=== PATIENT | male | born 1955 | race Caucasian/White ===

== ENCOUNTER 2021-04-28 15:13 | Emergency (ER) | payer MEDICARE, BC ==
--- NOTE | 2021-04-28 15:15 | EDM.PDOC ---
"ED HPI GENERAL MEDICAL PROBLEM - General Chief Complaint: Abdominal Pain Stated Complaint: BY AMBULANCE Time Seen by Provider: 04/28/21 15:15 Source of Information: Reports: Patient, EMS, RN, RN Notes Reviewed History Limitations: Reports: No Limitations - History of Present Illness INITIAL COMMENTS - FREE TEXT/NARRATIVE: Pt arrives to ER by ambulance with c/o severe LLQ abdominal pain and cramping that began about an hour prior to arriving to the ER. Pt states he was sitting on a golf cart at the [place] when the pain began. On the way to the ER the pain resolved. Now in the ER pt is pain free, but still somewhat tender to palpation at the LLQ. He denies fever, chills, N/V/D/C, or any other symptoms. Pt was worried due to Hx of non-alcoholic liver disease with cirrhosis and esophageal varices. Pt states he has had upper and lower endoscopy within the last year, and had one polyp on the colon. Denies Hx of irritable bowel, I.C., diverticulitis, or any other bowel disease. Onset: Today, Sudden Duration: Resolved Prior to Arrival Location: Reports: Abdomen Quality: Reports: Other (Cramping) Severity: Severe Improves with: Reports: None Worsens with: Reports: None Associated Symptoms: Reports: No Other Symptoms - Related Data Allergies Allergy/AdvReac Type Severity Reaction Status Date / Time No Known Allergies Allergy Verified 04/28/21 15:23 Home Meds: Home Meds Acetaminophen [Tylenol] 650 mg PO Q4H PRN 04/28/21 [History] Gabapentin [Neurontin] 300 mg PO 04/28/21 [History] metFORMIN HCl [Metformin ER Gastric] 1,000 mg PO BID 04/28/21 [History] rOPINIRole [Requip] 1 mg PO BEDTIME 04/28/21 [History] traMADol [Ultram] 50 mg PO Q8H PRN 04/28/21 [History] Past Medical History Gastrointestinal History: Reports: Cirrhosis, Fatty Liver, GI Bleed (Esophageal varices) Genitourinary History: Reports: BPH Social & Family History - Family History Family Medical History: No Pertinent Family History - Living Situation & Occupation Living situation: Reports: , with Spouse ED ROS GENERAL - Review of Systems Review Of Systems: Comprehensive ROS is negative, except as noted in HPI. ED EXAM, GI/ABD - Physical Exam Exam: See Below Exam Limited By: No Limitations General Appearance: Alert, WD/WN, No Apparent Distress Eyes: Bilateral: Normal Appearance (No scleral icterus) Nose: Normal Inspection, No Blood Throat/Mouth: Normal Lips, Normal Voice, No Airway Compromise Head: Atraumatic, Normocephalic Neck: Normal Inspection Respiratory/Chest: No Respiratory Distress, Lungs Clear, Normal Breath Sounds, No Accessory Muscle Use, Chest Non-Tender Cardiovascular: Normal Peripheral Pulses, Regular Rate, Rhythm, No Edema, No Gallop, No JVD, No Murmur, No Rub GI/Abdominal Exam: Normal Bowel Sounds, Soft, No Organomegaly, No Distention, No Mass, Tender (LLQ). No: Guarding, Rigid, Rebound Back Exam: Normal Inspection Extremities: Normal Inspection Neurological: Alert, Oriented, No Motor/Sensory Deficits Psychiatric: Normal Mood Skin Exam: Warm, Dry, Intact, Normal Color, No Rash Course - Vital Signs Last Recorded V/S: Last Vital Signs Temp 97.2 F 04/28/21 15:26 Pulse 71 04/28/21 15:26 Resp 20 04/28/21 15:26 BP 132/87 04/28/21 15:26 Pulse Ox 100 04/28/21 15:26 - Orders/Labs/Meds Orders: Active Orders 24 hr Category Date Time Status Peripheral IV Care [RC] . DIRECTED Care 04/28/21 15:29 Active Sodium Chloride 0.9% [Saline Flush] Med 04/28/21 15:28 Active 10 ml FLUSH ASDIRECTED PRN Peripheral IV Insertion Adult [OM.PC] Stat Oth 04/28/21 15:28 Ordered Medication Orders Sodium Chloride (Sodium Chloride 0.9% 10 Ml Syringe) 10 ml FLUSH ASDIRECTED PRN PRN Reason: Keep Vein Open Last Admin: 04/28/21 15:40 Dose: 10 ml Documented by: MARIA T Labs: Laboratory Tests 04/28/21 04/28/21 04/28/21 Range/Units 15:40 15:40 15:40 WBC 3.2 L (5.0-10.0) 10^3/uL RBC 4.39 L (4.6-6.2) 10^6/uL Hgb 14.7 (14.0-18.0) g/dL Hct 42.9 (40.0-54.0) % MCV 97.7 (80-100) fL MCH 33.5 (27.0-34.0) pg MCHC 34.3 (33.0-35.0) g/dL Plt Count 98 L (150-450) 10^3/uL Neut % (Auto) 41.9 L (42.2-75.2) % Lymph % (Auto) 39.1 (20.5-50.1) % Bracken % (Auto) 15.9 H (2-8) % Eos % (Auto) 2.8 (1.0-3.0) % Baso % (Auto) 0.3 (0.0-1.0) % Sodium 141 (136-145) mmol/L Potassium 5.2 H (3.5-5.1) mmol/L Chloride 104 (98-107) mmol/L Carbon Dioxide 30 (21-32) mmol/L Anion Gap 12.2 (7-13) mEq/L BUN 17 (7-18) mg/dL Creatinine 1.10 (0.70-1.30) mg/dL Est Cr Clr Drug Dosing 69.41 mL/min Estimated GFR (MDRD) > 60 BUN/Creatinine Ratio 15.5 (No establ ref range) Glucose 130 H (70-99) mg/dL Lactic Acid 1.7 (0.4-2.0) mmol/L Calcium 8.9 (8.5-10.1) mg/dL Total Bilirubin 0.7 (0.2-1.0) mg/dL AST 44 H (15-37) U/L ALT 48 (16-63) U/L Alkaline Phosphatase 73 (46-116) U/L Total Protein 6.9 (6.4-8.2) g/dL Albumin 3.0 L (3.4-5.0) g/dL Globulin 3.9 Albumin/Globulin Ratio 0.77 Amylase 44 (25-115) U/L Urine Color (YELLOW) Urine Appearance (CLEAR) Urine pH (5.0-9.0) Ur Specific [place] (1.005-1.030) Urine Protein (NEGATIVE) Urine Glucose (UA) (NEGATIVE) Urine Ketones (NEGATIVE) Urine Occult Blood (NEGATIVE) Urine Nitrite (NEGATIVE) Urine Bilirubin (NEGATIVE) Urine Urobilinogen (0.2-1.0) mg/dL Ur Leukocyte Esterase (NEGATIVE) Urine RBC /HPF Urine WBC (0-5/HPF) /HPF Ur Epithelial Cells (NOT SEEN) /HPF Amorphous Sediment (NOT SEEN) /HPF Urine Bacteria (0-FEW/HPF) /HPF Urine Mucus (NOT SEEN) /LPF 04/28/21 Range/Units 16:25 WBC (5.0-10.0) 10^3/uL RBC (4.6-6.2) 10^6/uL Hgb (14.0-18.0) g/dL Hct (40.0-54.0) % MCV (80-100) fL MCH (27.0-34.0) pg MCHC (33.0-35.0) g/dL Plt Count (150-450) 10^3/uL Neut % (Auto) (42.2-75.2) % Lymph % (Auto) (20.5-50.1) % [place]ack[place] % (Auto) (2-8) % Eos % (Auto) (1.0-3.0) % Baso % (Auto) (0.0-1.0) % Sodium (136-145) mmol/L Potassium (3.5-5.1) mmol/L Chloride (98-107) mmol/L Carbon Dioxide (21-32) mmol/L Anion Gap (7-13) mEq/L BUN (7-18) mg/dL Creatinine (0.70-1.30) mg/dL Est Cr Clr Drug Dosing mL/min Estimated GFR (MDRD) BUN/Creatinine Ratio (No establ ref range) Glucose (70-99) mg/dL Lactic Acid (0.4-2.0) mmol/L Calcium (8.5-10.1) mg/dL Total Bilirubin (0.2-1.0) mg/dL AST (15-37) U/L ALT (16-63) U/L Alkaline Phosphatase (46-116) U/L Total Protein (6.4-8.2) g/dL Albumin (3.4-5.0) g/dL Globulin Albumin/Globulin Ratio Amylase (25-115) U/L Urine Color Yellow (YELLOW) Urine Appearance Slightly cloudy (CLEAR) Urine pH 7.0 (5.0-9.0) Ur Specific [place] 1.025 (1.005-1.030) Urine Protein Negative (NEGATIVE) Urine Glucose (UA) Negative (NEGATIVE) Urine Ketones Negative (NEGATIVE) Urine Occult Blood Moderate H (NEGATIVE) Urine Nitrite Negative (NEGATIVE) Urine Bilirubin Negative (NEGATIVE) Urine Urobilinogen 0.2 (0.2-1.0) mg/dL Ur Leukocyte Esterase Negative (NEGATIVE) Urine RBC 40-50 H /HPF Urine WBC 0-5 (0-5/HPF) /HPF Ur Epithelial Cells Few (NOT SEEN) /HPF Amorphous Sediment Rare (NOT SEEN) /HPF Urine Bacteria Rare (0-FEW/HPF) /HPF Urine Mucus Few H (NOT SEEN) /LPF Meds: Medications Generic Name Dose Route Start Last Admin Trade Name Freq PRN Reason Stop Dose Admin Sodium Chloride 10 ml 04/28/21 15:28 04/28/21 15:40 Sodium Chloride 0.9% 10 Ml Syringe FLUSH 10 ml ASDIRECTED PRN Administration Keep Vein Open - Radiology Interpretation Free Text/Narrative:: [facility] Final Radiology Report Call: [phone] assistance Online chat: [email or web address] Name: WHIT CHOPRA Age: 65Years M Date: 04/28/2021 SSN: -- : [id number] Study: CT ABDOMEN PELVIS WO CONT Requesting Physician: CHANCE CABRERA Images: [id number] Addl Studies: Provided Clinical History: LLQ pain, hematuria, suspected kidney stone Contrast: Without Contrast Medium: Contrast Amount: Contrast Method: Page 1 of 2 PROCEDURE INFORMATION: Exam: CT Abdomen And Pelvis Without Contrast Exam date and time: 04/28/2021 5:27 PM Age: 65 years old Clinical indication: Other: Llq pain, hematuria, suspected kidney stone TECHNIQUE: Imaging protocol: Computed tomography of the abdomen and pelvis without contrast. Radiation optimization: All CT scans at this facility use at least one of these dose optimization techniques: automated exposure control; mA and/or kV adjustment per patient size (includes targeted exams where dose is matched to clinical indication); or iterative reconstruction. COMPARISON: No relevant prior studies available. FINDINGS: Lungs: Unremarkable.No mass or nodule. Liver: Normal. No mass. Gallbladder and bile ducts: Cholelithiasis. Pancreas: 1.5 mm calcification noted in the pancreatic neck. Likely due to previous inflammation or trauma. No ductal dilation. Spleen: Normal. No splenomegaly. Adrenal glands: Normal. No mass. Kidneys and ureters: Normal. No hydronephrosis. Stomach and bowel: Unremarkable. No obstruction. No mucosal thickening. Appendix: No evidence of appendicitis. Normal appendix. Intraperitoneal space: Unremarkable. No free air. No significant fluid collection. Tiny umbilical hernia (fat containing). Vasculature: Unremarkable. No abdominal aortic aneurysm. WHIT CHOPRA | Final Radiology Report CONFIDENTIALITY STATEMENT This report is intended only for use by the referring physician, and only in accordance with law. If you received this in error, call [phone]. Page 2 of 2 Lymph nodes: Unremarkable. No enlarged lymph nodes. Urinary bladder: Unremarkable as visualized. Reproductive: Prostate gland enlarged. Bones/joints: Unremarkable. No acute fracture. Soft tissues: Unremarkable. IMPRESSION: 1. Cholelithiasis. 2. Minimal pancreatic calcification. Possibly due to previous trauma or inflammation. 3. Enlarged prostate gland. 4. No acute abdominal or pelvic findings Thank you for allowing us to participate in the care of your patient. Dictated and Authenticated by: Florentino Holt MD 04/28/2021 5:58 PM Central Time ([place] & [place]) Departure - Departure Time of Disposition: 18:11 Disposition: Home, Self-Care 01 Condition: Good Clinical Impression: Acute abdominal pain in left lower quadrant, Prostate enlargement Cholelithiasis Qualifiers: Cholelithiasis location: gallbladder Cholecystitis presence: without cholecystitis Biliary obstruction: without biliary obstruction Qualified Code(s): K80.20 - Calculus of gallbladder without cholecystitis without obstruction - Discharge Information *PRESCRIPTION DRUG MONITORING PROGRAM REVIEWED*: Not Applicable *COPY OF PRESCRIPTION DRUG MONITORING REPORT IN PATIENT TUSHAR: Not Applicable Instructions: Abdominal Pain, Adult, [id number] Forms: ED Department Discharge Additional Instructions: No diagnostic lab or CT scan findings to explain the source of the left lower abdominal pain. Follow up with your clinic provider if any further concerns. Inform your primary physician of the incidental finding of gallstones, and prostate enlargement. Return to ER if pain returns, or if any new symptoms develop. Sepsis Event Note (ED) - Focused Exam Vital Signs: Vital Signs Temp Pulse Resp BP Pulse Ox 04/28/21 15:26 97.2 F 71 20 132/87 100 - My Orders Last 24 Hours: My Active Orders 04/28/21 15:28 Sodium Chloride 0.9% [Saline Flush] 10 ml FLUSH ASDIRECTED PRN Peripheral IV Insertion Adult [OM.PC] Stat 04/28/21 15:29 Peripheral IV Care [RC] . DIRECTED - Assessment/Plan Last 24 Hours: My Active Orders 04/28/21 15:28 Sodium Chloride 0.9% [Saline Flush] 10 ml FLUSH ASDIRECTED PRN Peripheral IV Insertion Adult [OM.PC] Stat 04/28/21 15:29 Peripheral IV Care [RC] . DIRECTED"
[2021-04-28] MEDS ORDERED: Sodium Chloride 0.9% 10 ML Syringe FLUSH PRN (15:28)
[2021-04-28 16:08] LABS: ANION GAP 12.2 mEq/L (7-13); CHLORIDE,CL 104 mmol/L (98-107); SODIUM,NA 141 mmol/L (136-145)
--- NOTE | 2021-04-28 17:58 | CT ---
PROCEDURE INFORMATION: Exam: CT Abdomen And Pelvis Without Contrast Exam date and time: 04/28/2021 5:27 PM Age: 65 years old Clinical indication: Other: Llq pain, hematuria, suspected kidney stone TECHNIQUE: Imaging protocol: Computed tomography of the abdomen and pelvis without contrast. Radiation optimization: All CT scans at this facility use at least one of these dose optimization techniques: automated exposure control; mA and/or kV adjustment per patient size (includes targeted exams where dose is matched to clinical indication); or iterative reconstruction. COMPARISON: No relevant prior studies available. FINDINGS: Lungs: Unremarkable.No mass or nodule. Liver: Normal. No mass. Gallbladder and bile ducts: Cholelithiasis. Pancreas: 1.5 mm calcification noted in the pancreatic neck. Likely due to previous inflammation or trauma. No ductal dilation. Spleen: Normal. No splenomegaly. Adrenal glands: Normal. No mass. Kidneys and ureters: Normal. No hydronephrosis. Stomach and bowel: Unremarkable. No obstruction. No mucosal thickening. Appendix: No evidence of appendicitis. Normal appendix. Intraperitoneal space: Unremarkable. No free air. No significant fluid collection. Tiny umbilical hernia (fat containing). Vasculature: Unremarkable. No abdominal aortic aneurysm. Lymph nodes: Unremarkable. No enlarged lymph nodes. Urinary bladder: Unremarkable as visualized. Reproductive: Prostate gland enlarged. Bones/joints: Unremarkable. No acute fracture. Soft tissues: Unremarkable. IMPRESSION: 1. Cholelithiasis. 2. Minimal pancreatic calcification. Possibly due to previous trauma or inflammation. 3. Enlarged prostate gland. 4. No acute abdominal or pelvic findings
== END 2021-04-28 18:23 | disposition home or self-care (01) ==
LOC: DL.ED 15:13
DX: K80.20 Calculus of gallbladder without cholecystitis without obstruction (principal); N40.0 Benign prostatic hyperplasia without lower urinary tract symptoms; Z79.899 Other long term (current) drug therapy
CPT/HCPCS: 36415; 74176; 80053; 81001; 82150; 83605; 85025; 99284; 99285-25